=== PATIENT | female | born 1970 | race Caucasian/White ===

== ENCOUNTER → 2016-11-26 | Outpatient (CLI) | payer OTHER | LOC: KOH-I 12:21 | DX: R05 Cough (principal) | CPT/HCPCS: 71020 ==

== ENCOUNTER → 2020-11-07 | Outpatient (CLI) | payer OTHER | LOC: KOH-I 16:26 | DX: M54.13 Radiculopathy, cervicothoracic region (principal); M50.323 Other cervical disc degeneration at C6-C7 level | CPT/HCPCS: 72050; 72070 ==

== ENCOUNTER → 2020-11-27 | Outpatient (CLI) | payer OTHER | LOC: KOH-I 10:11 | DX: M41.9 Scoliosis, unspecified (principal) | CPT/HCPCS: 72082 ==